=== PATIENT | female | born 1960 | race Caucasian/White ===

== ENCOUNTER → 2022-06-05 | Day surgery (SDC) | payer OTHER ==
[~2022-06-05] VITALS: Ht 162.6 cm; Wt 76.2 kg
[~2022-06-05] MED LIST: ASPIR 8181 MG PO; BENAZEPRIL HCL20 MG PO; CBD GUMMIE PO; CENTRUM CHEWAB1 EAC2 PO; CRESTOR20 MG PO; DOXYCYCLINE HYC50 MG PO; ELAVIL50 MG PO; HCTZ25 MG PO; MOBIC7.5 MG PO; NIACIN ER500 MG PO; NORCO 10-325 T1 EACH PO; TIZANIDINE HCL4 M1 PO; UROCIT-K10 MEQ PO
== END | disposition home or self-care (01) ==
LOC: FAS 05:53
DX: M16.11 Unilateral primary osteoarthritis, right hip (principal); S73.001A Unspecified subluxation of right hip, initial encounter; X58.XXXA Exposure to other specified factors, initial encounter; Z88.0 Allergy status to penicillin; Z91.048 Other nonmedicinal substance allergy status
CPT/HCPCS: 76000; J1040; J2250; J2704; Q9967